=== PATIENT | male | born 1935 | race Caucasian/White ===

== ENCOUNTER 2016-10-26 13:33 | Inpatient (IN) | payer MEDICARE, BC ==
[2016-10-26] MEDS ORDERED: ONDANSETRON HCL/PF 2 MG/ML VIAL ONE ×2 (13:43→13:44)
[2016-10-26] MEDS ORDERED: ONDANSETRON HCL/PF 2 MG/ML VIAL IV ONE (13:44)
[2016-10-26] MEDS ORDERED: MORPHINE SULFATE 4 MG/ML SYRG ONE (13:44)
[2016-10-26] MEDS ORDERED: MORPHINE SULFATE 4 MG/ML SYRG IV ONE (13:46)
[2016-10-26 13:59] LABS: Hematocrit 45.9 % (42.0-52.0); Mean Cell Volume 93.7 fl (78-100); Mean Corpuscular Hemoglobin 32.7 pg (27-31); Mean Corpuscular Hgb Conc 34.9 g/dl (32-36); Mean Platelet Volume 11.2 fl (6.0-9.5); Neutrophil # 9.9 K/mm3 (1.3-6.0); Neutrophil % 85.5 % (42-75.0); Platelet Count 163 K/mm3 (150-450); Red Cell Distribution Width 13.2 % (11.5-14.0); White Blood Count 11.6 K/mm3 (4.0-10.5)
--- NOTE | 2016-10-26 14:06 | ERNOTE ---
Chest Pain/Cardiac HPI Chief Complaint: Chest Pain Time Seen by Provider: 10/26/16 13:39 Source: patient Immunizations: IMMUNIZATION HX History of Influenza Vaccine No Hx Pneumococcal Vaccination Yes Allergies/Adverse Reactions: Allergies No Known Allergies Allergy (Verified 11/12/15 16:13) Home Medications: HOME MEDICATIONS Aspirin 81 mg PO DAILY 05/27/15 [Last Taken Unknown] Lisinopril [Zestril] 20 mg PO DAILY 05/27/15 [Last Taken Unknown] Warfarin Sodium [Coumadin] 5 mg PO DAILY 07/05/16 [Last Taken Unknown] Atorvastatin Calcium [Lipitor] 20 mg PO DAILY 10/26/16 [Last Taken Unknown] Metoprolol Succinate [Toprol Xl] 50 mg PO DAILY 10/26/16 [Last Taken Unknown] Omeprazole 20 mg PO DAILY 10/26/16 [Last Taken Unknown] Narrative: Patient states that he was feeling fine yesterday however this morning he started developing epigastric abdominal pain and had 1 emesis. At about 10:00 this morning the pain started increasing in severity to where it was 9 out of 10 by the time he received emergency department here. Much like at home after he threw up he felt somewhat better however he still has considerable pain in the epigastric area. Timing: getting worse Severity/Quality: severe Location: epigastric Chest Pain Radiation: no radiation Activities at Onset: none Associated Symptoms: Present: nausea, vomiting Prior Chest Pain/Cardiac Workup: Reports: prior chest pain Review of Systems - Review of Systems Constitutional: Present: See HPI EYE: Present: no symptoms reported ENT: Present: no symptoms reported Respiratory: Present: no symptoms reported Cardiology: Present: no symptoms reported Gastrointestinal/Abdominal: Present: nausea, vomiting, abdominal pain Genitourinary: Present: no symptoms reported Musculoskeletal: Present: no symptoms reported Skin: Present: no symptoms reported Neurological: Present: no symptoms reported Endocrine: Present: no symptoms reported Hematologic/Lymphatic: Present: no symptoms reported Psych: Present: no symptoms reported - Patient's Past Medical History Patient History - Medical: No pertinent hx Patient History - Cardiac/Respiratory: Atrial Fibrillation, Hypertension, Hyperlipidemia, Myocardial Infarction Patient History - Cancer: No Hx of Cancer Patient History - Surgical Procedures: Coronary Bypass Surgery, Cardiac stent, T & A Patient History - Other: None - Social History Living Situations: home Psych History: No pertinent hx Alcohol Use: none - Immunizations Hx Pneumococcal Vaccination: Yes History of Influenza Vaccine: No Physical Exam - Physical Exam General Appearance: Present: wd/wn, alert, severe distress Eye Exam: Normal inspection: bilateral, PERRL: bilateral Ears, Nose, Throat: Present: normal ENT inspection, H, normal pharynx Neck: Present: normal inspection, nontender Respiratory: Present: no respiratory distress, normal breath sounds, no accessory muscle use, chest nontender, lungs clear Cardiovascular/Chest: Present: regular rate, rhythm, no murmur, normal peripheral pulses Gastrointestinal/Abdominal: Present: normal bowel sounds, tenderness, distended , guarding, rebound Rectal Exam: Present: deferred Back Exam: Present: normal inspection, normal range of motion Extremity Exam: Present: normal inspection, non-tender, no edema, normal range of motion Neurological Exam: Present: alert, oriented, normal mood/affect Skin Exam: Present: normal color, warm/dry Lymphatic Exam: Present: no adenopathy ED Progress - Results and Orders Patient's Lab Results:: I have reviewed the patient's lab results. - Vital Signs Patient's Vital Signs:: I have reviewed the patient's vital signs. Vital Signs: Vital Signs 10/26/16 10/26/16 13:38 13:42 Temperature 36.4 C L Pulse Rate 68 69 Respiratory 13 Rate Blood Pressure 147/56 O2 Sat by Pulse 92 Oximetry - X-Ray X-Ray #1 X-Ray: chest Interpretation: Reviewed by me - CT/Ultrasound CT/Ultrasound Narrative: I have reviewed both the Abd/Pelvis CT and the GB US - Progress/Reassessment Chief Complaint: Chest Pain Plan - Plan Plan: I discussed the case with both Dr. Dallas and Dr. Kingsley, and both agreed that the patient needs to be admitted. Patient is currently over anticoagulated on his Coumadin so we will give him a dose of kcentra and try here to help bring that back in the line and he'll be started on heparin drip as a bridge prior to going to surgery. Patient was noted to have mildly elevated lactic acid and was given a liter fluid, repeat lactate showed that while was improving he was still mildly elevated so a second liter of fluid was given here in the emergency department. Patient is currently doing much better most of the pain resolved except on palpation of the gallbladder which reveals a positive Lopes' s test. He agrees to be admitted and we will get him ready for surgery likely tomorrow. Departure - Departure Clinical Impression: Cholecystitis, acute, Atrial fibrillation with normal ventricular rate Disposition: [facility] Condition: Fair Referrals: David Madera MD [Primary Care Provider] -
[2016-10-26 14:07] LABS: INR 3.84 INR (0.90-1.10); Partial Thrombolplastin Time 35.2 Seconds (24-32); Prothrombin Time (Patient) 39.9 Seconds (9.4-11.4)
--- OUTSIDE RECORDS SUMMARY | 2016-10-26 14:11 | XMS REPORT | Continuity of Care Document ---
:1935 Author Organization [facility] ([facility]) Address [place] [address] Phone [phone] Care Team Providers Name Role Phone Santy, David Primary Care Provider [phone] Source Comments This disclosure is being made pursuant to the Care Everywhere program, applicable federal and state laws, and may not contain all informaitonavailable regarding this patient.[facility] ([facility]) Active Allergies and Adverse Reactions No Known Allergies Current Medications Prescription Sig. Disp. Refills Start Date End Date Status metoPROLol succinate 50 Take 50 mg by Active mg XL tablet mouth daily lisinopril 20 mg tablet Take 20 mg by Active mouth daily atorvastatin 20 mg Take 20 mg by Active tablet mouth daily HYDROmorphone 2 mg Take 1 tablet (2 40 tablet 0 05/29/2015 Active tablet mg total) by mouth every 6 hours as needed for pain. 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 Social History Tobacco Use Types Packs/Day Years Used Date Never Smoker Alcohol Use Drinks/Week oz/Week Comments No Last Filed Vital Signs Vital Sign Reading Time Taken Blood Pressure 154/105 04/30/2016 9:49 AM CDT Pulse 81 04/30/2016 9:49 AM CDT Temperature 36.9 C (98.4 F) 05/30/2015 8:00 AM [employer]ATION [employer]ANT RE[employer]ER Respiratory Rate 18 05/30/2015 8:00 AM [employer] RE[employer] Height 1.803 m (5' 11") 04/30/2016 9:49 AM CDT Weight 91.1 kg (200 lb 13.4 oz) 04/30/2016 9:49 AM CDT Body Mass Index 28.02 04/30/2016 9:49 AM CDT Oxygen Saturation 96% 06/27/2015 10:56 AM [employer] REPA[employer]ER Plan of Care Health Maintenance Due Date Last Done Comments Hepatitis B Vaccine (1 of 3 - Primary Series) 1935 Tdap Vaccine 1944 Lipid Disorder Screening 1951 Td Vaccine 1951 Colonoscopy 1983 Zoster Vaccine 1993 Pneumococcal Vaccine (1 of 2 - PCV13) 1998 Influenza Vaccine: Seasonal (#1) 02/16/2016 Results from Last 3 Months Not on file
[2016-10-26] MEDS ORDERED: NORMAL SALINE 1,000 ML in NORMAL SALINE 1,000 ML IV ONE (14:16)
[2016-10-26 14:19] LABS: ALT 87 U/L (19-67); AST 88 U/L (0-48); Alkaline Phosphatase * 54 U/L (50-170); Amylase * 33 U/L (25-115); Anion Gap 13.5 mmol/L (6.8-13.8); BUN/Creatinine Ratio 23.4 (9.0-21.6); Bilirubin, Total 2.2 mg/dL (0.0-1.1); Blood Urea Nitrogen 25 mg/dL (6-23); Ca. Corrected For Albumin 8.9 mg/dL (8.4-10.2); Calcium * 9.2 mg/dL (7.9-10.9); Chloride 106 mmol/L (97-106); Glucose * 113 mg/dL (70-110); Lipase 150 U/L (73-393); Potassium 4.5 mmol/L (3.4-4.6); Sodium 140 mmol/L (132-142); Total Protein 7.4 gm/dL (6.2-8.2); Troponin I Less than 0.017 ng/ml (0.00-0.10)
[2016-10-26] MEDS ORDERED: NORMAL SALINE 1,000 ML IV ONE (17:56)
--- OUTSIDE RECORDS SUMMARY | 2016-10-26 18:29 | XMS REPORT | Continuity of Care Document ---
:1935 Author Organization [facility] ([facility]) [place] [address] Phone [phone] Care Team Providers Name Role Phone Santy, David Primary Care Provider [phone] Source Comments This disclosure is being made pursuant to the Care Everywhere program, applicable federal and state laws, and may not contain all informaitonavailable regarding this patient.[facility] ([facility]) Active Allergies and Adverse Reactions No Known [...] 36.9 C (98.4 F) 05/30/2015 8:00 AM RN PRODUCTION Respiratory Rate 18 05/30/2015 8:00 AM RN PRODUCTION Height 1.803 m (5' 11") 04/30/2016 9:49 AM CDT Weight 91.1 kg (200 lb 13.4 oz) 04/30/2016 9:49 AM CDT Body Mass Index 28.02 04/30/2016 9:49 AM CDT Oxygen Saturation 96% 06/27/2015 10:56 AM RN PRODUCTION Plan of Care Health Maintenance Due Date Last Done Comments Hepatitis B Vaccine (1 of 3 - Primary Series) 1935 Tdap Vaccine 1944 Lipid Disorder Screening 1951 Td Vaccine 1951 Colonoscopy 1983 Zoster Vaccine 1993 Pneumococcal Vaccine (1 of 2 - PCV13) 1998 Influenza Vaccine: Seasonal (#1) 02/16/2016 Results from Last 3 Months Not on file
[2016-10-26] MEDS ORDERED: PHYTONADIONE (VIT K1) 10 MG/ML AMPUL IM ONE (18:48)
--- NOTE | 2016-10-26 21:57 | HP ---
Chief Complaint - Chief Complaint Date of Service: 10/26/16 Time of Service: 21:00 Chief Complaint: Abdominal pain, nausea and vomiting History of Present Illness: 81 years old male adm to the hospital with reports of abdominal pain, nausea and vomiting while at home. pt stated the pain was excruciating so he came to the ER. While in ER pain resolved with pain medications, he currently feels sore to the abdomen but denies further discomfort. He denies chest pain, palpitation, diarrhea, fever,chills , shortness of breath or diaphoresis.In ER U/S abdomen: seen Acute acalculous cholecystitis, Dr Dominguez following and initiated IV antbx. On adm WBC 11.6, temp 38.2 and elevated lactic acid. INR 3.84 supra-therapeutic, he was given FFP and Vitamin K 10mg IM x1. Initiated Heparin drip while Coumadin on hold, pt remains in A-fib and potentially will have surgery tomorrow. PMH significant for left arm DVT, A-fib, NE, hypertension and hyperlipidemia. Plan of care discussed with pt he verbalized understanding and agree. - Patient's Past Medical History Patient History - Medical: No pertinent hx Patient History - Cardiac/Respiratory: Atrial Fibrillation - on coumadin, Deep Vein Thrombosis - Left arm, Hypertension, Hyperlipidemia, Myocardial Infarction Patient History - Cancer: No Hx of Cancer Patient History - Surgical Procedures: Coronary Bypass Surgery, Cardiac stent, T & A Patient History - Other: None - Family History Mother Family History - Medical: Family History - Cardiac/Respiratory: Hypertension Family History - Cancer: No pertinent family hx Father Family History - Medical: Family History - Cardiac/Respiratory: Myocardial Infarction Family History - Cancer: No pertinent family hx - Social History Living Situations: alone Abuse History: No History of abuse Psych History: No pertinent hx Smoking Status: Never smoker Have you smoked in the past 12 months: No Alcohol Use: none - Immunizations Hx Pneumococcal Vaccination: Yes History of Influenza Vaccine: No Review Of Systems (GEN) - Review of Systems Generalized/Overall Review: Present: No Symptoms Reported EENTM: Present: No Symptoms Reported Respiratory: Present: No Symptoms Reported Cardiac: Present: No Symptoms Reported Abdominal: Present: No Symptoms Reported Genitourinary: Present: No Symptoms Reported Musculoskeletal: Present: No Symptoms Reported Neurological: Present: No Symptoms Reported Skin: Present: No Symptoms Reported Endocrine: Present: No Symptoms Reported Immunizations: IMMUNIZATION HX History of Influenza Vaccine No Hx Pneumococcal Vaccination Yes Allergies/Adverse Reactions: Allergies Allergy/AdvReac Type Severity Reaction Status Date / Time No Known Allergies Allergy Verified 11/12/15 16:13 Home Medications: HOME MEDICATIONS Lisinopril [Zestril] 20 mg PO AC 05/27/15 [Last Taken Unknown] Warfarin Sodium [Coumadin] 5 mg PO DAILY 07/05/16 [Last Taken 10/25/16 21:00 5 mg] Aspirin 325 mg PO AC 10/26/16 [Last Taken Unknown] Atorvastatin Calcium [Lipitor] 20 mg PO HS 10/26/16 [Last Taken Unknown] Metoprolol Succinate [Toprol Xl] 50 mg PO BID 10/26/16 [Last Taken Unknown] Omeprazole 20 mg PO DAILY 10/26/16 [Last Taken Unknown] Warfarin Sodium [Coumadin] 2.5 mg PO DAILY 10/26/16 [Last Taken Unknown] Exam - Exam Vital Signs: Vital Signs - Last Taken Temp 36.6 C 10/26/16 20:21 Pulse 99 10/26/16 19:00 Resp 16 10/26/16 19:00 BP 117/73 10/26/16 19:00 Pulse Ox 94 10/26/16 19:00 Constitutional: Present: Alert, Oriented x3, Cooperative, Well developed, No distress, Elderly, Looks Younger than stated age ENT Exam: Present: moist mucous membranes Eye Exam: bilateral eye: PERRL Neck: Present: full range of motion Back Exam: Present: no CVA tenderness Respiratory: Present: chest non-tender, lungs clear, normal breath sounds, no respiratory distress Cardiovascular/Chest: Present: normal peripheral pulses, no chest tenderness, no edema, irregularly irregular Peripheral Pulses: dorsalis-pedis (R): 2+, dorsalis-pedis (L): 2+ Abdomen: Present: Normal bowel sounds, soft, nontender, nondistended, no rebound tenderness, no hepatospenomegaly /Rectal: Present: Exam deferred Extremity: Present: normal range of motion, normal capillary refill Neurologic: Present: oriented x 3 Appearance: Present: appropriate appearance Eye contact: Present: cooperative Thoughts: Present: normal thought pattern Diagnostic Studies: Laboratory Results WBC 11.6 K/mm3 (4.0-10.5) H 10/26/16 13:50 RBC 4.90 M/mm3 (4.7-6.0) 10/26/16 13:50 Hgb 16.0 gm/dL (13.5-18.0) 10/26/16 13:50 Hct 45.9 % (42.0-52.0) 10/26/16 13:50 MCV 93.7 fl (78-100) 10/26/16 13:50 MCH 32.7 pg (27-31) H 10/26/16 13:50 MCHC 34.9 g/dl (32-36) 10/26/16 13:50 RDW 13.2 % (11.5-14.0) 10/26/16 13:50 Plt Count 163 K/mm3 (150-450) 10/26/16 13:50 MPV 11.2 fl (6.0-9.5) H 10/26/16 13:50 Immature Gran % (Auto) 0.40 % (0.001-0.429) 10/26/16 13:50 Immature Gran # (Auto) 0.05 K/mm3 (0.000-0.0310) H 10/26/16 13:50 Neutrophils % 85.5 % (42-75.0) H 10/26/16 13:50 Lymphocytes % 9.7 % (20-51) L 10/26/16 13:50 Monocytes % 3.2 % (0.0-9) 10/26/16 13:50 Eosinophils % 0.9 % (0.0-3.0) 10/26/16 13:50 Basophils % 0.3 % (0.0-1.0) 10/26/16 13:50 Nucleated RBC % 0.0 k/mm3 (0-1) 10/26/16 13:50 Neutrophils # 9.9 K/mm3 (1.3-6.0) H 10/26/16 13:50 Lymphocytes # 1.1 k/mm3 (1.5-3.5) L 10/26/16 13:50 Monocytes # 0.4 k/mm3 (0.0-1.0) 10/26/16 13:50 Eosinophils # 0.1 k/mm3 (0.0-0.7) 10/26/16 13:50 Absolute Basophils 0.0 k/mm3 (0.0-0.1) 10/26/16 13:50 PT 39.9 Seconds (9.4-11.4) H 10/26/16 13:50 INR (Anticoag Therapy) 3.84 INR (0.90-1.10) H 10/26/16 13:50 PTT (John) 35.2 Seconds (24-32) H 10/26/16 13:50 Sodium 140 mmol/L (132-142) 10/26/16 13:50 Plasma Sodium 140 mmol/L (130-142) 10/26/16 13:50 Potassium 4.5 mmol/L (3.4-4.6) 10/26/16 13:50 Chloride 106 mmol/L (97-106) 10/26/16 13:50 Carbon Dioxide 25.0 mmol/L (24-32.6) 10/26/16 13:50 Anion Gap 13.5 mmol/L (6.8-13.8) 10/26/16 13:50 BUN 25 mg/dL (6-23) H 10/26/16 13:50 Creatinine 1.07 mg/dL (0.4-1.4) 10/26/16 13:50 Est GFR (Non-Af Amer) 70 mL/min (60-130) D 10/26/16 13:50 BUN/Creatinine Ratio 23.4 (9.0-21.6) H 10/26/16 13:50 Random Glucose 113 mg/dL (70-110) H 10/26/16 13:50 Lactic Acid, Venous 2.4 mmol/L (0.4-1.9) H* 10/26/16 17:15 Calcium 9.2 mg/dL (7.9-10.9) 10/26/16 13:50 Calcium Adj for Albumin 8.9 mg/dL (8.4-10.2) 10/26/16 13:50 Total Bilirubin 2.2 mg/dL (0.0-1.1) H 10/26/16 13:50 AST 88 U/L (0-48) H 10/26/16 13:50 ALT 87 U/L (19-67) H 10/26/16 13:50 Alkaline Phosphatase 54 U/L (50-170) 10/26/16 13:50 Troponin I Less than 0.017 ng/ml (0.00-0.10) 10/26/16 13:50 Total Protein 7.4 gm/dL (6.2-8.2) 10/26/16 13:50 Albumin 4.0 gm/dl (3.4-5.0) 10/26/16 13:50 Amylase 33 U/L (25-115) 10/26/16 13:50 Lipase 150 U/L (73-393) 10/26/16 13:50 U/S Abdomen: Acalculous cholecystitis CXR: Stable chest showing borderline cardiomegaly and left basilar scarring. CT ABD: Suggesting of nonspecific gallbladder wall thickening with mild mucosal enhancement. Diverticulosis w/o diverticulitis. stool retention. Assessment/Plan - Narrative Narrative: Acute cholecystitis- seen on U/S Abdomen: Acalculous cholecystitis Dr Dominguez consulted and following, possible surgical intervention tomorrow depending on further testing in the morning. Blood cultures pending Continue with Cefazolin 1g Q6hr On adm WBC11.6, Temp 38.2 and lactic acid 2.4 IVF Bolus given in ER and will continue with gentle hydration while NPO Supratherapeutic INR-On adm INR 3.84, pt on Coumadin for A-fib Hold Coumadin and bridge with heparin, potential surgical intervention and while pt remains in A-fib. Vitamin K 10mg IM x1 given in ER 2 unit FFP Continue to monitor INR daily while hospitalized A-Fib- stable Coumadin on hold due to INR 3.84 Vitamin K and FFP given Heparin drip initiated Monitor INR daily Monitor on telemetry Hypertension- stable On adm BP 117/73 Monitor vital signs and resume home dose of medications Hyperlipidemia-stable Resume home medications Code status: Full VTE ppx: Therapeutic Heparin and Coumadin was put on hold Hx Afib and DVT GI Ppx: protonix Anticipate discharge home 2-3 days and follow up with PCP Time 35 minutes - Assessment/Plan (1) Cholecystitis, acute Problem: Acute (2) Supratherapeutic INR Problem: Acute (3) Atrial fibrillation with normal ventricular rate Problem: Chronic (4) Hypertension Problem: Chronic Qualifiers: Hypertension type: essential hypertension Qualified Code(s): I10 - Essential (primary) hypertension
[2016-10-27] MEDS ORDERED: ACETAMINOPHEN 325 MG TABLET PO ONE (00:08)
[2016-10-27] MEDS: 0.5 NORMAL SALINE 1,000 ML IV PRN ×2 (00:28→14:59)
[2016-10-27] MEDS: ceFAZolin SODIUM 1 GM in DEXTROSE 5 % IN WATER 100 ML IV SCH ×8 (00:31→21:13)
[2016-10-27] MEDS: HEPARIN SODIUM PORCINE IV SCH ×4 (01:07→22:34)
[2016-10-27] MEDS: DEXTROSE 5% IV SCH ×4 (01:07→22:34)
[2016-10-27] MEDS: WATER IV SCH ×4 (01:07→22:34)
[2016-10-27 05:36] LABS: Hematocrit 37.1 % (42.0-52.0); Hemoglobin 12.9 gm/dL (13.5-18.0); Mean Cell Volume 93.5 fl (78-100); Mean Corpuscular Hemoglobin 32.5 pg (27-31); Mean Corpuscular Hgb Conc 34.8 g/dl (32-36); Mean Platelet Volume 11.4 fl (6.0-9.5); Neutrophil # 13.9 K/mm3 (1.3-6.0); Neutrophil % 89.9 % (42-75.0); Platelet Count 117 K/mm3 (150-450); Red Blood Count 3.97 M/mm3 (4.7-6.0); Red Cell Distribution Width 13.3 % (11.5-14.0); White Blood Count 15.4 K/mm3 (4.0-10.5)
[2016-10-27 05:50] LABS: INR 2.21 INR (0.90-1.10)
[2016-10-27 05:52] LABS: ALT 357 U/L (19-67); AST 267 U/L (0-48); Albumin * 3.1 gm/dl (3.4-5.0); Alkaline Phosphatase * 65 U/L (50-170); Anion Gap 13.5 mmol/L (6.8-13.8); BUN/Creatinine Ratio 17.6 (9.0-21.6); Bilirubin, Total 4.3 mg/dL (0.0-1.1); Blood Urea Nitrogen 19 mg/dL (6-23); Ca. Corrected For Albumin 8.6 mg/dL (8.4-10.2); Calcium * 8.2 mg/dL (7.9-10.9); Carbon Dioxide 23.4 mmol/L (24-32.6); Chloride 105 mmol/L (97-106); Glucose * 117 mg/dL (70-110); Potassium 3.9 mmol/L (3.4-4.6); Sodium 138 mmol/L (132-142); Total Protein 6.2 gm/dL (6.2-8.2)
[2016-10-27] MEDS ORDERED: PHYTONADIONE (VIT K1) 10 MG/ML AMPUL IM ONE (06:40)
[2016-10-27 07:08] LABS: Chol/HDL Risk Ratio 2.3 mg/dL (3.3-5.0); Cholesterol 98 mg/dL (0-200); HDL Cholesterol 41 mg/dL (40-60); LDL Cholesterol 54 mg/dL (70-130); VLDL Cholesterol 3 mg/dL (5-40)
[2016-10-27] MEDS: METOPROLOL SUCCINATE 50 MG TABLET.SA PO SCH (08:51)
[2016-10-27] MEDS: LISINOPRIL 20 MG TABLET PO SCH (08:52)
[2016-10-27] MEDS ORDERED: ATORVASTATIN CALCIUM 10 MG TABLET PO SCH (09:00)
[2016-10-27] MEDS ORDERED: PHYTONADIONE (VIT K1) 5 MG TABLET PO STA (09:48)
[2016-10-27] MEDS: PANTOPRAZOLE SODIUM 40 MG in NORMAL SALINE 100 ML IV SCH (10:25)
--- NOTE | 2016-10-27 16:20 | PN ---
Subjective - Date and Time Seen Date: 10/27/16 Time: 08:45 Subjective Narrative: Patient seen and examined at bedside this AM. He states that he is not having any abdominal pain whatsoever. Objective - Review of Systems Generalized/Overall Review: Reports: No Symptoms Reported EENTM: Reports: No Symptoms Reported Respiratory: Reports: No Symptoms Reported Cardiac: Reports: No Symptoms Reported Abdominal: Reports: No Symptoms Reported Genitourinary Symptoms: Reports: No Symptoms Reported Musculoskeletal Complaints: Reports: No Symptoms Reported Neurological: Reports: No Symptoms Reported Skin: Reports: No Symptoms Reported Endocrine: Reports: No Symptoms Reported Misc: All systems neg except as marked - Vitals Vitals: Last Vital Signs Temp 38.2 C H 10/27/16 15:00 Pulse 85 10/27/16 15:00 Resp 16 10/27/16 15:00 BP 136/84 10/27/16 15:00 Pulse Ox 89 L 10/27/16 15:00 - Abnormal Lab Findings Abnormal Lab Findings: Abnormal Lab Results 10/27/16 10/27/16 10/27/16 Range/Units 05:19 05:19 05:19 WBC 15.4 H D (4.0-10.5) K/mm3 RBC 3.97 L (4.7-6.0) M/mm3 Hgb 12.9 L (13.5-18.0) gm/dL Hct 37.1 L (42.0-52.0) % MCH 32.5 H (27-31) pg Plt Count 117 L (150-450) K/mm3 MPV 11.4 H (6.0-9.5) fl Immature Gran % (Auto) 1.00 H (0.001-0.429) % Immature Gran # (Auto) 0.15 H (0.000-0.0310) K/mm3 Neutrophils % 89.9 H (42-75.0) % Lymphocytes % 2.7 L (20-51) % Neutrophils # 13.9 H (1.3-6.0) K/mm3 Lymphocytes # 0.4 L (1.5-3.5) k/mm3 PT 23.0 H (9.4-11.4) Seconds INR (Anticoag Therapy) 2.21 H (0.90-1.10) INR PTT (John) (24-32) Seconds Carbon Dioxide 23.4 L (24-32.6) mmol/L Random Glucose 117 H (70-110) mg/dL Total Bilirubin 4.3 H (0.0-1.1) mg/dL AST 267 H (0-48) U/L ALT 357 H (19-67) U/L Albumin 3.1 L (3.4-5.0) gm/dl Triglycerides Less than 15 L (30-200) mg/dL LDL Cholesterol 54 L (70-130) mg/dL VLDL Cholesterol 3 L (5-40) mg/dL Cholesterol/HDL Ratio 2.3 L (3.3-5.0) mg/dL 10/27/16 Range/Units 13:20 WBC (4.0-10.5) K/mm3 RBC (4.7-6.0) M/mm3 Hgb (13.5-18.0) gm/dL Hct (42.0-52.0) % MCH (27-31) pg Plt Count (150-450) K/mm3 MPV (6.0-9.5) fl Immature Gran % (Auto) (0.001-0.429) % Immature Gran # (Auto) (0.000-0.0310) K/mm3 Neutrophils % (42-75.0) % Lymphocytes % (20-51) % Neutrophils # (1.3-6.0) K/mm3 Lymphocytes # (1.5-3.5) k/mm3 PT (9.4-11.4) Seconds INR (Anticoag Therapy) (0.90-1.10) INR PTT (John) 55.0 H D (24-32) Seconds Carbon Dioxide (24-32.6) mmol/L Random Glucose (70-110) mg/dL Total Bilirubin (0.0-1.1) mg/dL AST (0-48) U/L ALT (19-67) U/L Albumin (3.4-5.0) gm/dl Triglycerides (30-200) mg/dL LDL Cholesterol (70-130) mg/dL VLDL Cholesterol (5-40) mg/dL Cholesterol/HDL Ratio (3.3-5.0) mg/dL - Exam Constitutional: Present: Alert, Oriented x3, Well developed, No distress ENT Exam: Present: hearing grossly normal, moist mucous membranes Respiratory: Present: lungs clear, normal breath sounds, no respiratory distress , no accessory muscle use Cardiovascular/Chest: Present: no edema, irregularly irregular Abdomen: Present: soft, nontender, nondistended, no rebound tenderness. Absent : tender, guarding, rigidity Extremity: Present: normal range of motion, normal inspection, no pedal edema Skin Exam: Present: warm/dry, no cyanosis Neurologic: Present: no motor/sensory deficits, alert, oriented x 3, other - Flat affect Appearance: Present: appropriate appearance, appropriate insight, neat, no memory impairment Eye contact: Present: cooperative, normal speech, avoids eye contact. Absent: good eye contact Thoughts: Present: normal thought pattern, no apparent hallucination Assessment/Plan Plan Narrative: Continue current cares. Continue IV antibiotics. Await blood culture results. Patient likely stable for OR tomorrow as long as clinical condition remains stable. - Problems/Diagnosis (1) Acute acalculous cholecystitis Problem: Acute
[2016-10-27] MEDS: IBUPROFEN 600 MG TABLET PO PRN (18:31)
--- NOTE | 2016-10-27 20:29 | CONS ---
HPI - General Date of Service: 10/26/16 Source: patient, RN/MD, RN notes reviewed, old records Exam Limitations: no limitations - History of Present Illness Initial Comments: The patient went out to eat this morning and had the sudden onset of severe epigastric pain and about 10:00. He had vomiting and presented to the emergency room. Evaluation there included a CAT scan which showed wall enhancement and possible all bladder inflammation, and a subsequent ultrasound reveals gallbladder wall thickening. Currently he states he is pain free. Timing/Duration: other - The pain began suddenly at about 10:00 this morning. Severity: severe Modifying Factors - (Worsens): Reports: movement Modifying Factors - (Improves): Reports: other - Pain medication Associated Symptoms: nausea, vomiting Allergies/Adverse Reactions: Allergies No Known Allergies Allergy (Verified 11/12/15 16:13) Home Medications: Home Medications Medication Instructions Recorded Last Taken Lisinopril [Zestril] 20 mg PO AC 05/27/15 Unknown Warfarin Sodium [Coumadin] 5 mg PO DAILY 07/05/16 10/25/16 21:00 5 mg Aspirin 325 mg PO AC 10/26/16 Unknown Atorvastatin Calcium [Lipitor] 20 mg PO HS 10/26/16 Unknown Metoprolol Succinate [Toprol Xl] 50 mg PO BID 10/26/16 Unknown Omeprazole 20 mg PO DAILY 10/26/16 Unknown Warfarin Sodium [Coumadin] 2.5 mg PO DAILY 10/26/16 Unknown - Patient's Past Medical History Patient History - Medical: No pertinent hx Patient History - Cardiac/Respiratory: Atrial Fibrillation, Deep Vein Thrombosis , Hypertension, Hyperlipidemia, Myocardial Infarction Patient History - Cancer: No Hx of Cancer Patient History - Surgical Procedures: Coronary Bypass Surgery, Cardiac stent, T & A Patient History - Other: None - Family History Mother Family History - Medical: Family History - Cardiac/Respiratory: Hypertension Family History - Cancer: No pertinent family hx Father Family History - Medical: Family History - Cardiac/Respiratory: Myocardial Infarction Family History - Cancer: No pertinent family hx - Social History Living Situations: alone Abuse History: No History of abuse Psych History: No pertinent hx Smoking Status: Never smoker Have you smoked in the past 12 months: No Alcohol Use: none - Immunizations Hx Pneumococcal Vaccination: Yes History of Influenza Vaccine: No Procedures ANESTH INJECT-SPIN CANAL (04/21/12) ENDOSC POLYPECTOMY OF LG INTEST (10/12/04) INJECT STEROID (04/21/12) SPINAL CANAL INJECT NEC (04/21/12) Medications - Medications Current Medications: Current Medications He has been given pain medication in the emergency room. He has been on chronic Coumadin therapy for atrial fibrillation Review of Systems - Review of Systems Generalized/Overall Review: Absent: Chills, Fever EENTM: Present: No Symptoms Reported Respiratory: Present: No Symptoms Reported Cardiac: Present: Palpitations. Absent: Chest Pain, Edema Abdominal: Present: Nausea, Vomiting, Abdominal Pain Genitourinary: Present: No Symptoms Reported Musculoskeletal: Present: No Symptoms Reported Neurological: Present: No Symptoms Reported Skin: Present: No Symptoms Reported. Absent: Change in Color Physical Examination - Exam Vital Signs: Vital Signs - Last Taken Temp 37.4 C 10/27/16 19:00 Pulse 85 10/27/16 19:00 Resp 16 10/27/16 19:00 BP 109/64 10/27/16 19:00 Pulse Ox 89 L 10/27/16 19:00 O2 Oxygen Delivery Method Room Air Constitutional: Present: Alert, Oriented x3, Cooperative, Well nourished, No distress ENT Exam: Present: normal ENT inspection, other - No jaundice Eye Exam: bilateral eye: normal inspection Neck: Present: full range of motion, normal inspection Respiratory: Present: lungs clear Cardiovascular/Chest: Present: irregularly irregular Abdomen: Present: other - He is currently nontender to even deep palpation in the right upper quadrant. There is no rebound tenderness elicited. /Rectal: Present: Exam deferred Extremity: Present: normal range of motion, no pedal edema, no calf tenderness Skin Exam: Present: normal color, warm/dry Neurologic: Present: machine hand II-XII nml as tested, normal cerebellar test, no motor/ sensory deficits Appearance: Present: appropriate appearance, appropriate insight Eye contact: Present: cooperative, good eye contact, normal speech Thoughts: Present: normal thought pattern - Results and Findings: Lab/Microbiology results last 24 hrs: Abnormal/Pending Laboratory Last 24 HRS 10/27/16 10/27/16 10/27/16 13:20 05:19 05:19 WBC RBC Hgb Hct MCH Plt Count MPV Immature Gran % (Auto) Immature Gran # (Auto) Neutrophils % Lymphocytes % Neutrophils # Lymphocytes # PT 23.0 H INR (Anticoag Therapy) 2.21 H PTT ([place]) 55.0 H D Carbon Dioxide 23.4 L Random Glucose 117 H Total Bilirubin 4.3 H AST 267 H ALT 357 H Albumin 3.1 L Triglycerides Less than 15 L LDL Cholesterol 54 L VLDL Cholesterol 3 L Cholesterol/HDL Ratio 2.3 L 10/27/16 05:19 WBC 15.4 H D RBC 3.97 L Hgb 12.9 L Hct 37.1 L MCH 32.5 H Plt Count 117 L MPV 11.4 H Immature Gran % (Auto) 1.00 H Immature Gran # (Auto) 0.15 H Neutrophils % 89.9 H Lymphocytes % 2.7 L Neutrophils # 13.9 H Lymphocytes # 0.4 L PT INR (Anticoag Therapy) PTT ([place]) Carbon Dioxide Random Glucose Total Bilirubin AST ALT Albumin Triglycerides LDL Cholesterol VLDL Cholesterol Cholesterol/HDL Ratio Culture 10/26/16 20:07 Blood Culture - Preliminary Blood NO GROWTH 24 HOURS - Assessments/Findings (1) Cholecystitis, acute Diagnosis(s): The cholecystitis appears to be acalculus Would begin empiric antibiotic coverage after blood cultures are obtained. Ideally an operation should be performed early in the course of the disease however his INR will need to be normalized and he may require bridging. Problem: Acute (2) Supratherapeutic INR Diagnosis(s): He is artery been given vitamin K and fresh frozen plasma. Bridging with heparin drip is anticipated. Problem: Acute (3) Atrial fibrillation with normal ventricular rate Diagnosis(s): He will require medical evaluation for risk assessment for possible surgery Problem: Chronic
--- NOTE | 2016-10-27 20:32 | PN ---
Dictated Progress Note - Date and Time Seen: Date: 10/27/16 Time: 20:29 - Progress Note Narrative: Vital Signs - Last Taken Temp 37.4 C 10/27/16 19:00 Pulse 85 10/27/16 19:00 Resp 16 10/27/16 19:00 BP 109/64 10/27/16 19:00 Pulse Ox 89 L 10/27/16 19:00 Abnormal/Pending Laboratory Last 24 HRS 10/27/16 10/27/16 10/27/16 13:20 05:19 05:19 WBC RBC Hgb Hct MCH Plt Count MPV Immature Gran % (Auto) Immature Gran # (Auto) Neutrophils % Lymphocytes % Neutrophils # Lymphocytes # PT 23.0 H INR (Anticoag Therapy) 2.21 H PTT ([place]) 55.0 H D Carbon Dioxide 23.4 L Random Glucose 117 H Total Bilirubin 4.3 H AST 267 H ALT 357 H Albumin 3.1 L Triglycerides Less than 15 L LDL Cholesterol 54 L VLDL Cholesterol 3 L Cholesterol/HDL Ratio 2.3 L 10/27/16 05:19 WBC 15.4 H D RBC 3.97 L Hgb 12.9 L Hct 37.1 L MCH 32.5 H Plt Count 117 L MPV 11.4 H Immature Gran % (Auto) 1.00 H Immature Gran # (Auto) 0.15 H Neutrophils % 89.9 H Lymphocytes % 2.7 L Neutrophils # 13.9 H Lymphocytes # 0.4 L PT INR (Anticoag Therapy) PTT ([place]) Carbon Dioxide Random Glucose Total Bilirubin AST ALT Albumin Triglycerides LDL Cholesterol VLDL Cholesterol Cholesterol/HDL Ratio Culture 10/26/16 20:07 Blood Culture - Preliminary Blood NO GROWTH 24 HOURS His vital signs have remained normal although his temperature did elevate, whether this is due to atelectasis or the disease process is unknown. His liver function studies have elevated further suggesting that although he is pain -free currently the disease process does involve the gallbladder. His INR is still elevated. He is currently on heparin drip. Currently the plan is for cholecystectomy tomorrow morning. The heparin drip will be stopped at 4 AM. He is been made nothing by mouth after midnight with chlorhexidine wipes and preoperative SCDs will be utilized. Have reviewed a pamphlet on gallbladder disease and gallbladder surgery with him. The risks and possible complications of the surgery were outlined including possible necessary conversion to open operation although every attempt was made to accomplish the procedure laparoscopically. After an interactive discussion his questions were answered to his apparent satisfaction and he has given informed consent for cholecystectomy (laparoscopic or open) with possible cholangiogram. Repeat liver function studies and coagulation profile are pending.
[2016-10-27 20:35] LABS: INR 1.8 INR (0.90-1.10); Prothrombin Time (Patient) 18.7 Seconds (9.4-11.4)
[2016-10-27 21:09] LABS: Albumin * 3.1 gm/dl (3.4-5.0); Bilirubin Direct 2.4 mg/dL (0.0-0.3); Bilirubin, Total 3.8 mg/dL (0.0-1.1); Bilirubin,Indirect 1.4 mg/dL (0.1-0.7); Total Protein 6.2 gm/dL (6.2-8.2)
[2016-10-27] MEDS: ROSUVASTATIN CALCIUM 10 MG TABLET PO SCH (21:13)
[2016-10-28] MEDS: ceFAZolin SODIUM 1 GM in DEXTROSE 5 % IN WATER 100 ML IV SCH ×6 (02:59→19:09)
[2016-10-28] MEDS: 0.5 NORMAL SALINE 1,000 ML IV PRN ×2 (03:02→13:50)
[2016-10-28 05:26] LABS: Hematocrit 37.9 % (42.0-52.0); Hemoglobin 12.9 gm/dL (13.5-18.0); Mean Platelet Volume 11.4 fl (6.0-9.5); Neutrophil # 8.4 K/mm3 (1.3-6.0); Neutrophil % 84.8 % (42-75.0); Platelet Count 96 K/mm3 (150-450); Red Blood Count 4.03 M/mm3 (4.7-6.0); Red Cell Distribution Width 13.5 % (11.5-14.0)
[2016-10-28 05:38] LABS: Prothrombin Time (Patient) 15.7 Seconds (9.4-11.4)
[2016-10-28 05:40] LABS: INR 1.51 INR (0.90-1.10)
[2016-10-28 05:41] LABS: Albumin * 2.8 gm/dl (3.4-5.0); Anion Gap 12.2 mmol/L (6.8-13.8); Bilirubin Direct 1.6 mg/dL (0.0-0.3); Bilirubin, Total 2.6 mg/dL (0.0-1.1); Calcium * 8.2 mg/dL (7.9-10.9); Carbon Dioxide 23.5 mmol/L (24-32.6); Estimated Creat Clear 59.6; Potassium 3.7 mmol/L (3.4-4.6); Total Protein 5.9 gm/dL (6.2-8.2)
[2016-10-28] MEDS: LISINOPRIL 20 MG TABLET PO SCH (08:38)
[2016-10-28] MEDS: METOPROLOL SUCCINATE 50 MG TABLET.SA PO SCH (08:39)
[2016-10-28] MEDS: PANTOPRAZOLE SODIUM 40 MG in NORMAL SALINE 100 ML IV SCH (09:34)
[2016-10-28] MEDS ORDERED: NORMAL SALINE 1,000 ML IV ONE (10:35)
[2016-10-28] MEDS ORDERED: RINGERS SOLUTION,LACTATED 1,000 ML IV ONE (10:50)
[2016-10-28] MEDS ORDERED: ceFAZolin SODIUM 1 GM VIAL IV ONE (11:00)
[2016-10-28] MEDS ORDERED: BUPIVACAINE HCL/EPINEPHRINE 50 ML VIAL IJ ONE (11:10)
[2016-10-28] MEDS ORDERED: MUPIROCIN 22 APPL TUBE TP ONE (11:22)
[2016-10-28] MEDS ORDERED: HYDROmorphone HCL 2 MG/ML VIAL IV ONE (12:49)
--- NOTE | 2016-10-28 13:25 | OR ---
Operative Report - Dictated Report Narrative: DATE OF OPERATION: 10/28/2016 PREOPERATIVE DIAGNOSIS: Acute cholecystitis POSTOPERATIVE DIAGNOSIS: Acute cholecystitis (pathology pending) OPERATION: Laparoscopic cholecystectomy SURGEON: ELAYNE Dominguez MD ANESTHESIA Gen. endotracheal Anthony Flores CRNA INDICATIONS FOR PROCEDURE: The patient is an 81-year-old male admitted with acute onset upper abdominal pain. He was found to have CT scan and ultrasound evidence of acute acalculous cholecystitis. His Coumadin has been reversed. He was placed briefly on a heparin drip which has been stopped for surgery. FINDINGS: Acute cholecystitis NARRATIVE OF PROCEDURE: The patient was identified preoperatively. Prior to the administration of anesthetic a multidisciplinary timeout observed. With the patient in the supine position, SCDs were placed, 1 g of intravenous Ancef was administered, and general endotracheal anesthetic administered. The patient's abdomen was prepped with Betadine solution and a generous operating field outlined with 4 sterile towels. The remainder the patient was covered with a sterile disposable drape. An infraumbilical skin incision was made. Dissection was carried along the umbilical stalk until the fascia of the linea alba was encountered. This was incised. The peritoneum was then elevated and incised to allow entry into the abdomen under direct vision. A Hussan cannula was placed, and the abdomen insufflated with CO2. The laparoscopic camera was introduced and the abdomen briefly explored. Those portions of the liver, omentum, small and large bowel visualized appeared normal. The apex of an acutely inflamed gallbladder was visible. Next under direct vision 3 additional working ports were inserted through separate skin incisions, one in the subxiphoid, one in the right upper quadrant, and one in the right flank. The gallbladder was decompressed with a needle and the puncture site grasped. The apex of the gallbladder was retracted cephalad. Omental adhesions to the body and neck of the gallbladder were lysed with electrocautery down to the expected location of the cystic duct. The cystic duct was dissected free for a sufficient distance for confident identification. It was doubly clipped and divided. The cystic artery was identified doubly clipped and divided. The gallbladder was then removed from the liver bed by retrograde electrocautery dissection. There was marked edema of the plain between the gallbladder and liver bed indicating acute inflammation. Prior to severing the last attachments of the gallbladder the liver bed was inspected and found to be hemostatic with no evidence of bile leak. The previously placed clips were seen to be intact. The right upper quadrant was suctioned clean. The last attachments of the gallbladder were divided. It was placed in an Endobag and parked in the right upper quadrant. The smaller working ports were withdrawn under direct vision to ensure entry site hemostasis. The gallbladder was removed in conjunction with the Hussan cannula. The pneumoperitoneum was allowed to escape, and after receiving a correct sponge needle and instrument count attention was turned to closing the abdomen. The fascia and peritoneum at the umbilicus were approximated with interrupted sutures of #1 Vicryl. Skin incisions were approximated with interrupted vertical mattress sutures of 4-0 nylon. The operative sites were washed and dried. Dressings of Bactroban ointment and large Band-Aids were applied to the small port sites. The umbilical incision was dressed with Bactroban ointment, 2 x 2, large Band-Aid and Medipore tape. The operative procedure was terminated at this point. The patient tolerated the anesthetic and procedure well without complication. There was no measurable blood loss. The gallbladder was submitted to pathology. 0.5% Marcaine with epinephrine was used for local anesthetic infiltration. The patient was transferred to the recovery room awake, extubated , and in stable condition. The patient may be discharged home when determined medically stable. He is not to lift over 10 pounds[address] He should not drive for 24 hours and then with caution while on pain medication. He is to leave the current dressings dry and intact for 48 hours but then may change the dressings daily or as needed. A return office appointment should be made for 11/03/2016. The patient will receive printed discharge instructions and prescription for pain medication. Reviewed and electronically signed
[2016-10-28] MEDS ORDERED: MORPHINE SULFATE 2 MG/ML DISP.SYRIN IV PRN (14:48)
[2016-10-28] MEDS ORDERED: ONDANSETRON HCL/PF 2 MG/ML VIAL IV PRN (14:48)
[2016-10-28] MEDS ORDERED: RINGERS SOLUTION,LACTATED 1,000 ML IV PRN (14:48)
[2016-10-28] MEDS ORDERED: oxyCODONE HCL/ACETAMINOPHEN 1 TAB TABLET PO PRN (14:48)
--- NOTE | 2016-10-28 16:49 | PN ---
Subjective - Date and Time Seen Date: 11/27/16 Time: 09:00 Subjective Narrative: Patient seen and examined at bedside this AM. He states that he is not having any abdominal pain whatsoever. Planning for gall bladder surgery later today. Patient denies any new issues or concerns. Objective - Review of Systems Generalized/Overall Review: Reports: No Symptoms Reported EENTM: Reports: No Symptoms Reported Respiratory: Reports: No Symptoms Reported Cardiac: Reports: No Symptoms Reported Abdominal: Reports: No Symptoms Reported Genitourinary Symptoms: Reports: No Symptoms Reported Musculoskeletal Complaints: Reports: No Symptoms Reported Neurological: Reports: No Symptoms Reported Skin: Reports: No Symptoms Reported Endocrine: Reports: No Symptoms Reported Misc: All systems neg except as marked - Vitals Vitals: Last Vital Signs Temp 36.5 C 10/28/16 14:15 Pulse 79 10/28/16 14:45 Resp 24 H 10/28/16 14:15 BP 136/94 10/28/16 14:15 Pulse Ox 95 10/28/16 14:15 - Abnormal Lab Findings Abnormal Lab Findings: Abnormal Lab Results 10/27/16 10/27/16 10/28/16 Range/Units 20:19 20:19 05:24 RBC (4.7-6.0) M/mm3 Hgb (13.5-18.0) gm/dL Hct (42.0-52.0) % MCH (27-31) pg Plt Count (150-450) K/mm3 MPV (6.0-9.5) fl Immature Gran % (Auto) (0.001-0.429) % Immature Gran # (Auto) (0.000-0.0310) K/mm3 Neutrophils % (42-75.0) % Lymphocytes % (20-51) % Neutrophils # (1.3-6.0) K/mm3 Lymphocytes # (1.5-3.5) k/mm3 PT 18.7 H 15.7 H (9.4-11.4) Seconds INR (Anticoag Therapy) 1.80 H 1.51 H (0.90-1.10) INR PTT ([place]) (24-32) Seconds Carbon Dioxide (24-32.6) mmol/L Total Bilirubin 3.8 H (0.0-1.1) mg/dL Direct Bilirubin 2.4 H (0.0-0.3) mg/dL Indirect Bilirubin 1.4 H (0.1-0.7) mg/dL AST 161 H (0-48) U/L ALT 272 H (19-67) U/L Total Protein (6.2-8.2) gm/dL Albumin 3.1 L (3.4-5.0) gm/dl 10/28/16 10/28/16 10/28/16 Range/Units 05:24 05:24 05:24 RBC 4.03 L (4.7-6.0) M/mm3 Hgb 12.9 L (13.5-18.0) gm/dL Hct 37.9 L (42.0-52.0) % MCH 32.0 H (27-31) pg Plt Count 96 L (150-450) K/mm3 MPV 11.4 H (6.0-9.5) fl Immature Gran % (Auto) 0.60 H (0.001-0.429) % Immature Gran # (Auto) 0.06 H (0.000-0.0310) K/mm3 Neutrophils % 84.8 H (42-75.0) % Lymphocytes % 6.3 L (20-51) % Neutrophils # 8.4 H (1.3-6.0) K/mm3 Lymphocytes # 0.6 L (1.5-3.5) k/mm3 PT (9.4-11.4) Seconds INR (Anticoag Therapy) (0.90-1.10) INR PTT ([place]) 33.3 H D (24-32) Seconds Carbon Dioxide 23.5 L (24-32.6) mmol/L Total Bilirubin 2.6 H (0.0-1.1) mg/dL Direct Bilirubin 1.6 H (0.0-0.3) mg/dL Indirect Bilirubin 1.0 H (0.1-0.7) mg/dL AST 116 H (0-48) U/L ALT 214 H (19-67) U/L Total Protein 5.9 L (6.2-8.2) gm/dL Albumin 2.8 L (3.4-5.0) gm/dl - Exam Constitutional: Present: Alert, Oriented x3, Cooperative, Well developed, Well nourished, No distress ENT Exam: Present: moist mucous membranes Respiratory: Present: lungs clear, normal breath sounds, no respiratory distress , no accessory muscle use Cardiovascular/Chest: Present: no edema, irregularly irregular Abdomen: Present: soft, nontender, nondistended, no rebound tenderness. Absent : guarding, rigidity Extremity: Present: normal range of motion, normal inspection Skin Exam: Present: warm/dry, no cyanosis Neurologic: Present: alert, normal mood/affect, oriented x 3 Appearance: Present: appropriate appearance, appropriate insight, neat, no memory impairment Eye contact: Present: cooperative, normal speech, avoids eye contact. Absent: good eye contact Thoughts: Present: normal thought pattern, no apparent hallucination Assessment/Plan Plan Narrative: Patient medically stable for planned laparoscopic cholecystectomy later today. Still waiting on final results of blood culture. Continue IV antibiotics for now. - Problems/Diagnosis (1) Acute acalculous cholecystitis Problem: Acute
[2016-10-28] MEDS: ENOXAPARIN SODIUM 60 MG, ENOXAPARIN SODIUM 30 MG SC SCH ×2 (17:04)
[2016-10-28] MEDS: WARFARIN SODIUM 5 MG TABLET PO SCH (17:07)
[2016-10-28] MEDS: IBUPROFEN 600 MG TABLET PO PRN (17:53)
[2016-10-28] MEDS: ROSUVASTATIN CALCIUM 10 MG TABLET PO SCH (20:10)
[2016-10-29] MEDS: ENOXAPARIN SODIUM 60 MG, ENOXAPARIN SODIUM 30 MG SC SCH ×4 (04:09→16:25)
[2016-10-29] MEDS: ceFAZolin SODIUM 1 GM in DEXTROSE 5 % IN WATER 100 ML IV SCH ×4 (04:09→11:19)
[2016-10-29 06:27] LABS: Prothrombin Time (Patient) 12.8 Seconds (9.4-11.4)
[2016-10-29 06:31] LABS: INR 1.23 INR (0.90-1.10)
[2016-10-29] MEDS: LISINOPRIL 20 MG TABLET PO SCH (09:45)
[2016-10-29] MEDS: PANTOPRAZOLE SODIUM 20 MG TABLET.DR PO SCH (09:45)
[2016-10-29] MEDS: METOPROLOL SUCCINATE 50 MG TABLET.SA PO SCH ×2 (09:45→21:55)
[2016-10-29] MEDS: PANTOPRAZOLE SODIUM 40 MG in NORMAL SALINE 100 ML IV SCH (09:50)
[2016-10-29] MEDS: PIPERACILLIN SODIUM/TAZOBACTAM 3.375 GM in DEXTROSE 5 % IN WATER 100 ML IV SCH ×4 (12:45→20:46)
--- NOTE | 2016-10-29 15:54 | PN ---
Subjective - Date and Time Seen Date: 11/28/16 Time: 09:15 Subjective Narrative: Patient seen and examined at bedside this AM. No actue issues overnight. Pain currently well controlled. Patient denies any new issues or concerns. Objective - Review of Systems Generalized/Overall Review: Reports: No Symptoms Reported EENTM: Reports: No Symptoms Reported Respiratory: Reports: No Symptoms Reported Cardiac: Reports: No Symptoms Reported Abdominal: Reports: No Symptoms Reported Genitourinary Symptoms: Reports: No Symptoms Reported Musculoskeletal Complaints: Reports: No Symptoms Reported Neurological: Reports: No Symptoms Reported Skin: Reports: No Symptoms Reported Endocrine: Reports: No Symptoms Reported Misc: All systems neg except as marked - Vitals Vitals: Last Vital Signs Temp 37.5 C 10/29/16 14:31 Pulse 100 10/29/16 14:31 Resp 20 10/29/16 14:31 BP 154/99 10/29/16 14:31 Pulse Ox 92 10/29/16 14:31 - Abnormal Lab Findings Abnormal Lab Findings: Abnormal Lab Results 10/29/16 Range/Units 06:07 PT 12.8 H (9.4-11.4) Seconds INR (Anticoag Therapy) 1.23 H (0.90-1.10) INR - Exam Constitutional: Present: Alert, Oriented x3, Cooperative, Well developed, Well nourished, No distress ENT Exam: Present: moist mucous membranes Respiratory: Present: lungs clear, normal breath sounds, no respiratory distress , no accessory muscle use Cardiovascular/Chest: Present: no edema, irregularly irregular Abdomen: Present: soft, nontender, nondistended Extremity: Present: normal range of motion, normal inspection Skin Exam: Present: warm/dry, no cyanosis Neurologic: Present: alert, oriented x 3, other - Flat affect Appearance: Present: appropriate appearance, appropriate insight, neat, no memory impairment Eye contact: Present: cooperative, normal speech, avoids eye contact. Absent: good eye contact Thoughts: Present: normal thought pattern, no apparent hallucination Assessment/Plan Plan Narrative: Patient doing well post operatively. Continue IV antibiotics with plan to transition to PO antibiotics tomorrow and possible discharge home tomorrow. - Problems/Diagnosis (1) Acute acalculous cholecystitis Problem: Acute
[2016-10-29] MEDS: WARFARIN SODIUM 5 MG TABLET PO SCH (16:25)
[2016-10-29] MEDS: ROSUVASTATIN CALCIUM 10 MG TABLET PO SCH (20:48)
[2016-10-29] MEDS ORDERED: hydrALAZINE HCL 20 MG/ML VIAL IV PRN (23:53)
[2016-10-30] MEDS: PIPERACILLIN SODIUM/TAZOBACTAM 3.375 GM in DEXTROSE 5 % IN WATER 100 ML IV SCH ×2 (03:38)
[2016-10-30] MEDS: ENOXAPARIN SODIUM 60 MG, ENOXAPARIN SODIUM 30 MG SC SCH ×2 (04:14)
[2016-10-30 05:05] LABS: Hematocrit 38.7 % (42.0-52.0); Hemoglobin 13.4 gm/dL (13.5-18.0); Mean Cell Volume 92.1 fl (78-100); Mean Corpuscular Hemoglobin 31.9 pg (27-31); Mean Corpuscular Hgb Conc 34.6 g/dl (32-36); Mean Platelet Volume 11.7 fl (6.0-9.5); Neutrophil # 5.4 K/mm3 (1.3-6.0); Neutrophil % 73.1 % (42-75.0); Platelet Count 124 K/mm3 (150-450); Red Cell Distribution Width 13.3 % (11.5-14.0); White Blood Count 7.4 K/mm3 (4.0-10.5)
[2016-10-30 05:22] LABS: Prothrombin Time (Patient) 11.4 Seconds (9.4-11.4)
[2016-10-30 05:23] LABS: INR 1.1 INR (0.90-1.10)
[2016-10-30 05:31] LABS: Anion Gap 15.2 mmol/L (6.8-13.8); BUN/Creatinine Ratio 9.4 (9.0-21.6); Bilirubin Direct 0.5 mg/dL (0.0-0.3); Bilirubin, Total 1.4 mg/dL (0.0-1.1); Bilirubin,Indirect 0.9 mg/dL (0.1-0.7); Calcium * 8.3 mg/dL (7.9-10.9); Carbon Dioxide 22.5 mmol/L (24-32.6); Estimated Creat Clear 62.1; Potassium 3.7 mmol/L (3.4-4.6); Total Protein 6.4 gm/dL (6.2-8.2)
[2016-10-30 07:02] VITALS: BP 143/98
[2016-10-30] MEDS: PANTOPRAZOLE SODIUM 20 MG TABLET.DR PO SCH (07:13)
[2016-10-30] MEDS: LISINOPRIL 20 MG TABLET PO SCH (10:06)
[2016-10-30] MEDS: METOPROLOL SUCCINATE 50 MG TABLET.SA PO SCH (10:11)
--- NOTE | 2016-10-30 10:46 | DS ---
(1) Acute acalculous cholecystitis Problem: Acute Description of Stay: ADMISSION DATE: 10.26.2016 DISCHARGE DATE: 10.30.2016 ADMISSION HPI BY EMILIE RUBI: 81 years old male adm to the hospital with reports of abdominal pain, nausea and vomiting while at home. pt stated the pain was excruciating so he came to the ER. While in ER pain resolved with pain medications, he currently feels sore to the abdomen but denies further discomfort. He denies chest pain, palpitation, diarrhea, fever,chills , shortness of breath or diaphoresis.In ER U/S abdomen: seen Acute acalculous cholecystitis, Dr Dominguez following and initiated IV antbx. On adm WBC 11.6, temp 38.2 and elevated lactic acid. INR 3.84 supra-therapeutic, he was given FFP and Vitamin K 10mg IM x1. Initiated Heparin drip while Coumadin on hold, pt remains in A-fib and potentially will have surgery tomorrow. PMH significant for left arm DVT, A-fib, [place], hypertension and hyperlipidemia. Plan of care discussed with pt he verbalized understanding and agree. HOSPITAL COURSE: The patient presented to the emergency department on 10/26/2016 with complaints of abdominal pain, nausea and vomiting. The pain progressively worsened and was described as excruciating by the patient upon arrival in the emergency department. The patient was found to have acalculous cholecystitis and Dr. Dominguez with general surgery was consulted and the patient ultimately had a laparoscopic cholecystectomy by Dr. Dominguez on 10/28/2016. Patient was also found to be bacteremic and blood culture obtained on admission ended up with heavy growth of Escherichia coli. The patient was treated with IV antibiotics while he was in the hospital and was discharged home and instructed to complete 5 additional days of Cipro. FOLLOW-UP APPOINTMENTS: -PCP within 1 week -Dr. Dominguez for post-op visit and suture removal on 11.04.2016 -[facility] will call on 11.01.2016 to arrange appointment NEW OR CHANGED MEDICATIONS: Ciprofloxacin 500mg PO BID X 5 days Lovenox SubQ every 12 hours until INR is therapeutic between 2-3 for >24 hours Lisinopril 20mg PO BID Oxycodone-APAP 5-325mg 1-2 tabs PO q4h PRN pain (#30) DISCONTINUED MEDICATIONS: None RADIOLOGY: Chest x-ray on 10/26/2016 showed: Stable chest showing borderline cardiomegaly. Left basilar scarring. CT of the abdomen and pelvis with contrast on 10/26/2016 showed: Nonspecific gallbladder wall thickening with mild mucosal enhancement. Nonspecific prominence of the intra and extrahepatic biliary tree. Diverticulosis without evidence of diverticulitis. Stool retention without evidence of bowel obstruction. Normal appendix. Right upper quadrant ultrasound on 10/26/2016 showed: Cholecystitis. Procedures Performed: see notes below List Procedures: DATE OF OPERATION: 10/28/2016 PREOPERATIVE DIAGNOSIS: Acute cholecystitis POSTOPERATIVE DIAGNOSIS: Acute cholecystitis (pathology pending) OPERATION: Laparoscopic cholecystectomy SURGEON: ELAYNE Dominguez MD ANESTHESIA Gen. karen Flores CRNA INDICATIONS FOR PROCEDURE: The patient is an 81-year-old male admitted with acute onset upper abdominal pain. He was found to have CT scan and ultrasound evidence of acute acalculous cholecystitis. His Coumadin has been reversed. He was placed briefly on a heparin drip which has been stopped for surgery. FINDINGS: Acute cholecystitis NARRATIVE OF PROCEDURE: The patient was identified preoperatively. Prior to the administration of anesthetic a multidisciplinary timeout observed. With the patient in the supine position, SCDs were placed, 1 g of intravenous Ancef was administered, and general endotracheal anesthetic administered. The patient's abdomen was prepped with Betadine solution and a generous operating field outlined with 4 sterile towels. The remainder the patient was covered with a sterile disposable drape. An infraumbilical skin incision was made. Dissection was carried along the umbilical stalk until the fascia of the linea alba was encountered. This was incised. The peritoneum was then elevated and incised to allow entry into the abdomen under direct vision. A Hussan cannula was placed, and the abdomen insufflated with CO2. The laparoscopic camera was introduced and the abdomen briefly explored. Those portions of the liver, omentum, small and large bowel visualized appeared normal. The apex of an acutely inflamed gallbladder was visible. Next under direct vision 3 additional working ports were inserted through separate skin incisions, one in the subxiphoid, one in the right upper quadrant, and one in the right flank. The gallbladder was decompressed with a needle and the puncture site grasped. The apex of the gallbladder was retracted cephalad. Omental adhesions to the body and neck of the gallbladder were lysed with electrocautery down to the expected location of the cystic duct. The cystic duct was dissected free for a sufficient distance for confident identification. It was doubly clipped and divided. The cystic artery was identified doubly clipped and divided. The gallbladder was then removed from the liver bed by retrograde electrocautery dissection. There was marked edema of the plain between the gallbladder and liver bed indicating acute inflammation. Prior to severing the last attachments of the gallbladder the liver bed was inspected and found to be hemostatic with no evidence of bile leak. The previously placed clips were seen to be intact. The right upper quadrant was suctioned clean. The last attachments of the gallbladder were divided. It was placed in an Endobag and parked in the right upper quadrant. The smaller working ports were withdrawn under direct vision to ensure entry site hemostasis. The gallbladder was removed in conjunction with the Hussan cannula. The pneumoperitoneum was allowed to escape, and after receiving a correct sponge needle and instrument count attention was turned to closing the abdomen. The fascia and peritoneum at the umbilicus were approximated with interrupted sutures of #1 Vicryl. Skin incisions were approximated with interrupted vertical mattress sutures of 4-0 nylon. The operative sites were washed and dried. Dressings of Bactroban ointment and large Band-Aids were applied to the small port sites. The umbilical incision was dressed with Bactroban ointment, 2 x 2, large Band-Aid and Medipore tape. The operative procedure was terminated at this point. The patient tolerated the anesthetic and procedure well without complication. There was no measurable blood loss. The gallbladder was submitted to pathology. 0.5% Marcaine with epinephrine was used for local anesthetic infiltration. The patient was transferred to the recovery room awake, extubated , and in stable condition. The patient may be discharged home when determined medically stable. He is not to lift over 10 pounds[address] He should not drive for 24 hours and then with caution while on pain medication. He is to leave the current dressings dry and intact for 48 hours but then may change the dressings daily or as needed. A return office appointment should be made for 11/03/2016. The patient will receive printed discharge instructions and prescription for pain medication. Discharge Disposition: Home self care Disposition: Home self-care Condition: Stable Discharge Activity: Activity as tolerated Discharge Diet: Resume usual diet Referrals: David Madera MD [Primary Care Provider] - Problem Oriented Discharge Instructions to Patient/Family: Laparoscopic Cholecystectomy, Care After, [id number] Additional Patient Instructions (free text): Follow-up with PCP within 1 week. Follow-up with Dr. Dominguez for post-op visit and suture removal on 11.04.2016. Dr Madera's office will contact you Tuesday to set up a PT/INR. Prescriptions (Any new or edited meds): Ciprofloxacin HCl [Cipro] 500 mg PO BID #10 tab Enoxaparin Sodium [Lovenox] 90 mg SC Q12H #12 disp.syrin Lisinopril [Zestril] 20 mg PO BID #60 tablet oxyCODONE HCL/ACETAMINOPHEN [Percocet 5 MG/325 MG] 1 - 2 tab PO Q4H PRN #30 tablet PRN Reason: Moderate Pain Complete Home Medications List: Complete Home Medication List: Warfarin Sodium [Coumadin] 5 mg PO DAILY 07/05/16 Aspirin 325 mg PO AC 10/26/16 Atorvastatin Calcium [Lipitor] 20 mg PO HS 10/26/16 Metoprolol Succinate [Toprol Xl] 50 mg PO BID 10/26/16 Omeprazole 20 mg PO DAILY 10/26/16 Warfarin Sodium [Coumadin] 2.5 mg PO DAILY 10/26/16 Ciprofloxacin HCl [Cipro] 500 mg PO BID #10 tab 10/30/16 Enoxaparin Sodium [Lovenox] 90 mg SC Q12H #12 disp.syrin 10/30/16 Lisinopril [Zestril] 20 mg PO BID #60 tablet 10/30/16 oxyCODONE HCL/ACETAMINOPHEN [Percocet 5 MG/325 MG] 1 - 2 tab PO Q4H PRN #30 tablet 10/30/16
== END 2016-10-30 14:08 | disposition home or self-care (01) | DRG 419 ==
LOC: ER 13:33 → MS 18:25
PROVIDERS: ADMIT Internal Medicine; ATTEND Internal Medicine
PROC: 0FT44ZZ Resection of Gallbladder, Percutaneous Endoscopic Approach (ICD-10-PCS; principal; 2016-10-28 10:00)
DX: K81.2 Acute cholecystitis with chronic cholecystitis (principal); I10 Essential (primary) hypertension; E78.5 Hyperlipidemia, unspecified; I48.2 Chronic atrial fibrillation; Z79.01 Long term (current) use of anticoagulants; Z79.82 Long term (current) use of aspirin; I25.2 Old myocardial infarction; Z95.1 Presence of aortocoronary bypass graft; Z95.5 Presence of coronary angioplasty implant and graft
CPT/HCPCS: 36415; 47562; 71010; 74177; 76705; 80048; 80053; 80061; 80076; 82150; 83605; 83690; 84484; 85025; 85610; 85730; 87040; 88304; 93005; 96372; 96374; 96375; 99284; P9060